=== PATIENT | female | born 2000 | race Caucasian/White ===

== ENCOUNTER 2020-12-10 12:53 | Emergency (ER) | payer BC ==
[~2020-12-10] VITALS: Ht 170.2 cm; Wt 57.8 kg
[2020-12-10 13:13] VITALS: TEMP 98.1
[2020-12-10] MEDS ORDERED: NORCO 325 MG-51 TAB PO ×3 (15:42→15:57)
[2020-12-10] MEDS ORDERED: CEPHALEXIN500 M1 PO (15:42)
[2020-12-10 15:55] VITALS: BP 112/65; PULSE 71
== END 2020-12-10 15:58 | disposition home or self-care (01) ==
LOC: COL.ER 12:53
DX: S62.663B Nondisplaced fracture of distal phalanx of left middle finger, initial encounter for open fracture (principal); S61.213A Laceration without foreign body of left middle finger without damage to nail, initial encounter; W23.1XXA Caught, crushed, jammed, or pinched between stationary objects, initial encounter; Y92.39 Other specified sports and athletic area as the place of occurrence of the external cause